=== PATIENT | female | born 1985 | race African-American/Black ===

== ENCOUNTER 2016-05-26 12:40 | Inpatient (IN) | payer OTHER ==
[2016-05-26] MEDS ORDERED: ELECTROLYTE-148 SOLN 1,000 ML IV SCH (13:15)
[2016-05-26 13:59] VITALS: BMI 33.6
[2016-05-26 14:48] LABS: BASOPHIL 0.3 % (0-2.0); MCH 31.4 pg (25.7-33.7); MCHC 33.9 g/dl (32.0-36.0); MEAN CELL VOLUME 92.5 fl (80-96); MEAN PLT VOLUME 8.1 fl (7.5-11.1); NEUTROPHILS 79.1 % (42.8-82.8); PLATELET COUNT 275 K/MM3 (134-434); RDW 14.2 % (11.6-15.6); WHITE BLOOD COUNT 10.1 K/mm3 (4.0-10.0)
[2016-05-26 15:20] LABS: INR 0.95 (0.82-1.09); PROTHROMBIN TIME (PATIENT) 10.4 SEC (9.98-11.88)
[2016-05-26 15:22] LABS: ACTIVATED PTT 28.7 SECONDS (26.9-34.4)
[2016-05-26 15:23] LABS: CALCIUM 9.1 mg/dL (8.5-10.1); CREATININE 0.4 mg/dL (0.55-1.02)
--- NOTE | 2016-05-26 15:25 | PN ---
Progress Note, Labor Vaginal Exam #1 Labor Exam Date: 05/26/16 Labor Exam Time: 15:15 Heart Rate (range): 135's Dilatation: 6cm Effacement (%): 90% Amniotic Membrane Status: Bulging Presentation: Vertex/Position Station: -3 Remarks: 31yo P0 @ 39.1 wks in active labor Category 1 FHR MF status reassuring Pain well controlled cont current management
[2016-05-26] MEDS ORDERED: BUTORPHANOL TARTRATE 1 MG/ML VIAL IVPB ONE (15:26)
[2016-05-26] MEDS ORDERED: PROMETHAZINE HCL 25 MG/1 ML VIAL IVPB ONE (15:28)
[2016-05-26 16:01] LABS: HIV 1 & 2 AB NEGATIVE; HIV 1 AGp24 NEGATIVE
--- NOTE | 2016-05-26 18:26 | PN ---
Progress Note, Labor Vaginal Exam #2 Labor Exam Date: 05/26/16 Labor Exam Time: 18:15 Heart Rate (range): 140's mod varriability, +accels, no decels Dilatation: 8cm Effacement (%): 90% Amniotic Membrane Status: Ruptured (clear fluid) Presentation: Vertex/Position Station: -2 Remarks: 31 yo P0 @ 39.1 wks in active labor Category 1 FHR MF status reassuring AROM for augmentation Pain tolerated well cont following progress of labor
--- NOTE | 2016-05-26 20:41 | PN ---
Delivery - Delivery Type of Anesthesia: Local Episiotomy/Laceration: 2nd degree (Repaired with 2-0 Chromic without dificulty) Delivery, Single - Stages of Labor Date 1st Stage Initiatied: 05/26/16 Time 1st Stage Initiated: 11:30 Date 2nd Stage Initiated: 05/26/16 Time 2nd Stage Initiated: 20:00 Date of Delivery: 05/26/16 Time of Delivery: 20:08 Date Placenta Delivered: 05/26/16 Time Placenta Delivered: 20:11 Placenta: Yes: Spontaneous, Normal Configuration - Condition of Infant Infant Gender: Female Position: Left, OA - 1 Minute Total Score: 9 5 Minutes Total Score: 9 - Feeding Plan Initial Plan: Elected not to breastfeed exclusively throughout hospitalization Benefits of Exclusively reinforced: Yes - Additional Information: Weight [id number] Remarks - Remarks Remarks: Uncomplicated head and shoulder delivery
[2016-05-26] MEDS: IBUPROFEN 600 MG TABLET (FP) PO PRN (21:55)
[2016-05-26] MEDS ORDERED: BENZOCAINE 20% 57 GM BOTTLE TP PRN (22:34)
[2016-05-26] MEDS ORDERED: BENZOCAINE 28 GM HEMORRHOIDAL OINTMENT TP PRN (22:34)
[2016-05-26] MEDS ORDERED: BISACODYL 10 MG SUPP.RECT RC PRN (22:34)
[2016-05-26] MEDS ORDERED: WITCH HAZEL 50% (TUCKS) 40 PAD/JAR PAD TP PRN (22:34)
[2016-05-26] MEDS ORDERED: METHYLERGONOVINE MALEATE 0.2 MG/1 ML AMP IM PRN (22:34)
[2016-05-26] MEDS ORDERED: D5W-LR W/ 20 UNITS OXYTOCIN 1,000 ML IV SCH (22:45)
--- NOTE | 2016-05-26 22:48 | HP ---
Past Medical History - Primary Care Physician PCP:: Rhea Reyes - Admission Chief Complaint: 31yo P0 @ 39.1wks with contructions History Source: Patient Limitations to Obtaining History: No Limitations - Past Medical History ...: 2 ...Para: 0 ...Term: 0 ...: 0 ...Spon : 0 ...Induced : 1 ...Multiple Gestation: 0 ...LMP: 08/28/15 ... Weeks Gestation by Dates: 38.6 ...EDC by Dates: 06/03/16 ...EDC by Sono: 06/01/16 - Past Surgical History Past Surgical History: Yes: None Hx Myomectomy: No Hx Transabdominal Cerclage: No - Smoking History Smoking history: Never smoked Have you smoked in the past 12 months: No - Alcohol/Substance Use Hx Alcohol Use: No History of Substance Use: reports: None - Social History Usual Living Arrangement: Yes: With Parent Home Medications - Allergies Allergies/Adverse Reactions: Allergies Allergy/AdvReac Type Severity Reaction Status Date / Time No Known Allergies Allergy Verified 05/26/16 18:51 - Home Medications Home Medications: Ambulatory Orders Sulfamethoxazole/Trimethoprim [Bactrim Ds -] 1 tab PO BID #14 tablet 10/18/14 Pnv95/Ferrous Fumarate/FA [ Vitamin Tablet] 1 each PO DAILY 05/26/16 Review of Systems - Review of Systems Constitutional: reports: No Symptoms Cardiovascular: reports: No Symptoms Respiratory: reports: No Symptoms Gastrointestinal: reports: No Symptoms Genitourinary: reports: No Symptoms Breasts: reports: No Symptoms Reported Musculoskeletal: reports: No Symptoms Neurological: reports: No Symptoms Pain Intensity: 5 Physical Exam - Maternity Vital Signs: Vital Signs Temperature 98.1 F 05/26/16 20:20 Pulse Rate 82 05/26/16 21:05 Respiratory Rate 18 05/26/16 21:05 Blood Pressure 110/50 05/26/16 21:05 O2 Sat by Pulse Oximetry (%) 100 05/26/16 21:05 Constitutional: Yes: Well Nourished Neck: Yes: WNL Lungs: Clear to auscultation Breast(s): Yes: WNL - Abdominal Exam/OB Fundal Height: 39 Number of Fetuses: Single Presentation: Vertex Contractions: Yes Regularity: Regular (Q5min) Intensity: Mild/Mod Heart Rate (range): 140' Category: I Accelerations: Uniform Decelerations: None - Vaginal Exam/OB Vaginal Bleediing: No Speculum Exam: No Dilatation (cm): cm Effacement (%): 80% Amniotic Membrane Status: Intact (examined after walking at 3pm) Presentation: Vertex/Position Station: -3 - Physical Exam Musculoskeletal: Yes: WNL Extremities: Yes: WNL Integumentary: Yes: WNL ...Motor Strength: WNL Psychiatric: Yes: WNL - Labs Lab Results: CBC, BMP 05/26/16 14:20 05/26/16 14:20 Assessment/Plan 31yo P0 @39wks in active labor admit to L&D, labs, NPO Category 1 FHR Declines pain meds currently
[2016-05-26] MEDS ORDERED: OXYTOCIN 20 UNITS in 0.9% NS 1000 ML INFUS.BAG IV ONE (22:57)
[2016-05-27] MEDS: IBUPROFEN 600 MG TABLET (FP) PO PRN ×2 (01:52→14:40)
[2016-05-27 07:35] LABS: BASOPHIL 0.4 % (0-2.0); EOSINOPHIL 1.3 % (0-4.5); MCH 31.5 pg (25.7-33.7); MCHC 33.5 g/dl (32.0-36.0); MEAN CELL VOLUME 94.2 fl (80-96); MEAN PLT VOLUME 8.6 fl (7.5-11.1); NEUTROPHILS 79.2 % (42.8-82.8); PLATELET COUNT 261 K/MM3 (134-434); RDW 14.1 % (11.6-15.6); WHITE BLOOD COUNT 16.1 K/mm3 (4.0-10.0)
[2016-05-27] MEDS: FERROUS SO4 325 MG TABLET (FP) PO SCH ×2 (08:12→17:24)
[2016-05-27] MEDS: PRENATAL VITAMINS W/ FOLIC ACID TABLET (FP) PO SCH (10:23)
[2016-05-27] MEDS: ACETAMINOPHEN 325 MG TABLET (FP) PO PRN (14:41)
--- NOTE | 2016-05-27 15:30 | PN ---
Post Progress Note - Subjective Subjective: No complaints Post Day: 1 Type of Delivery: Vital Signs: Vital Signs Temperature 98 F 05/27/16 12:40 Pulse Rate 100 H 05/27/16 12:40 Respiratory Rate 20 05/27/16 12:40 Blood Pressure 119/67 05/27/16 12:40 O2 Sat by Pulse Oximetry (%) 100 05/26/16 21:05 Breast Exam: Yes: Soft Uterus: Yes: Fundus @ umbilicus Abdomen/GI: Yes: Abdomen soft, Passing flatus, Tolerating PO Lochia: Yes: Rubra Lochia, amount: Small Extremities: Yes: Calves non-tender, Edema Perineum: Yes: Episiotomy (intact) Activity: Ambulating - Labs Labs: CBC WBC 16.1 K/mm3 (4.0-10.0) H D 05/27/16 06:10 RBC 3.41 M/mm3 (3.60-5.2) L 05/27/16 06:10 Hgb 10.8 GM/dL (10.7-15.3) D 05/27/16 06:10 Hct 32.1 % (32.4-45.2) L 05/27/16 06:10 MCV 94.2 fl (80-96) 05/27/16 06:10 MCHC 33.5 g/dl (32.0-36.0) 05/27/16 06:10 RDW 14.1 % (11.6-15.6) 05/27/16 06:10 Plt Count 261 K/MM3 (134-434) 05/27/16 06:10 MPV 8.6 fl (7.5-11.1) 05/27/16 06:10 Neutrophils % 79.2 % (42.8-82.8) 05/27/16 06:10 Lymphocytes % 14.6 % (8-40) 05/27/16 06:10 Monocytes % 4.5 % (3.8-10.2) 05/27/16 06:10 Eosinophils % 1.3 % (0-4.5) 05/27/16 06:10 Basophils % 0.4 % (0-2.0) 05/27/16 06:10 Assessment/Plan 31yo P1 s/p , doing well stable, afebrile. care instructions reviewed. Continue routine care. Ambulation encouraged Discharge instruction reviewed.
[2016-05-27] MEDS ORDERED: SENNOSIDES/DOCUSATE COMBO (SENNA PLUS) TABLET (UD) PO PRN (22:00)
[2016-05-28] MEDS: ACETAMINOPHEN 325 MG TABLET (FP) PO PRN (05:17)
[2016-05-28] MEDS: IBUPROFEN 600 MG TABLET (FP) PO PRN (05:18)
[2016-05-28] MEDS: FERROUS SO4 325 MG TABLET (FP) PO SCH (08:30)
--- NOTE | 2016-05-28 08:33 | PN ---
Post Progress Note - Subjective Subjective: No complaints Post Day: 2 Type of Delivery: Vital Signs: Vital Signs Temperature 97.7 F 05/27/16 21:22 Pulse Rate 87 05/27/16 21:22 Respiratory Rate 17 05/27/16 21:22 Blood Pressure 108/58 05/27/16 21:22 O2 Sat by Pulse Oximetry (%) 99 05/27/16 21:22 Breast Exam: Yes: Soft Uterus: Yes: Fundus below umbilicus, Non-tender Abdomen/GI: Yes: Abdomen soft Lochia: Yes: Rubra Lochia, amount: Small Extremities: Yes: Calves non-tender, Edema Perineum: Yes: Episiotomy (repair intact) Activity: Ambulating - Labs Labs: CBC WBC 16.1 K/mm3 (4.0-10.0) H D 05/27/16 06:10 RBC 3.41 M/mm3 (3.60-5.2) L 05/27/16 06:10 Hgb 10.8 GM/dL (10.7-15.3) D 05/27/16 06:10 Hct 32.1 % (32.4-45.2) L 05/27/16 06:10 MCV 94.2 fl (80-96) 05/27/16 06:10 MCHC 33.5 g/dl (32.0-36.0) 05/27/16 06:10 RDW 14.1 % (11.6-15.6) 05/27/16 06:10 Plt Count 261 K/MM3 (134-434) 05/27/16 06:10 MPV 8.6 fl (7.5-11.1) 05/27/16 06:10 Neutrophils % 79.2 % (42.8-82.8) 05/27/16 06:10 Lymphocytes % 14.6 % (8-40) 05/27/16 06:10 Monocytes % 4.5 % (3.8-10.2) 05/27/16 06:10 Eosinophils % 1.3 % (0-4.5) 05/27/16 06:10 Basophils % 0.4 % (0-2.0) 05/27/16 06:10 Assessment/Plan 31yo P1 s/p , doing well stable, afebrile. care instructions reviewed. Continue routine care. Ambulation encouraged Discharge instruction reviewed.
[2016-05-28 09:44] VITALS: BP 107/53; PULSE 75; TEMP 98.4
[2016-05-28] MEDS: PRENATAL VITAMINS W/ FOLIC ACID TABLET (FP) PO SCH (10:06)
--- NOTE | 2016-06-30 15:51 | DS ---
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: Vital Signs Temperature 98.4 F 05/28/16 09:43 Pulse Rate 75 05/28/16 09:43 Respiratory Rate 20 05/28/16 09:43 Blood Pressure 107/53 05/28/16 09:43 O2 Sat by Pulse Oximetry (%) 99 05/27/16 21:22 Constitutional: Yes: Well Nourished HENT: Yes: WNL Neck: Yes: WNL Cardiovascular: Yes: WNL Respiratory: Yes: WNL, CTA Bilaterally Gastrointestinal: Yes: WNL, Normal Bowel Sounds, Soft Renal/: Yes: WNL Pelvis: Yes: WNL Cervix: Yes: Normal Uterus: Yes: Firm ....Post : Yes: Slight lochia rubra Musculoskeletal: Yes: WNL Extremities: Yes: WNL Labs: CBC, BMP 05/27/16 06:10 05/26/16 14:20 Delivery - Delivery Vaginal Delivery: No Problems Type of Anesthesia: Local Episiotomy/Laceration: 2nd degree (Repaired with 2-0 Chromic without dificulty) EBL (cc): 300 Delivery, Single - Stages of Labor Date 1st Stage Initiatied: 05/26/16 Time 1st Stage Initiated: 11:30 Date 2nd Stage Initiated: 05/26/16 Time 2nd Stage Initiated: 20:00 Date of Delivery: 05/26/16 Time of Delivery: 20:08 Time Placenta Delivered: 20:11 Placenta: Yes: Spontaneous, Normal Configuration - 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 You may walk unlimited noah of and climb stairs. You may resume driving the car when you feel safe and comfortable behind the wheel. No sexual activity as instructed. Wound care If you have a bandage, leave it on, and keep dry for 48-72 hours. After that time discard the outer bandage. If they are tapes on the skin under the out of bandage leave them in place. They will peel off in the next 7 to 10 days. Do Not Peel them off. You may shower the day after surgery. If there are tapes present on the skin, you may shower over them. Diet There are no dietary restrictions. Eat healthy, high-fiber foods. Drink 6 to 8 glasses of liquid each day. This will assist in keeping your bowels are regular. Pain management You may take Tylenol or acetaminophen or Ibuprofen (for example, Motrin, Advil etc.) from my pain prescription medication is ordered should be taken as prescribed for moderate to severe pain. Call MD for any of the following: Severe pain not relieved by medication Fever of 101 or higher Excessive bleeding or drainage on dressing Inability to urinate Referrals: Rhea Reyes MD [Staff Physician] - Disposition: HOME - Home Medications Comprehensive Discharge Medication List: Ambulatory Orders Sulfamethoxazole/Trimethoprim [Bactrim Ds -] 1 tab PO BID #14 tablet 10/18/14 Pnv95/Ferrous Fumarate/FA [ Vitamin Tablet] 1 each PO DAILY 05/26/16
== END 2016-05-28 13:45 | disposition home or self-care (01) | DRG 775 ==
LOC: JDEL 12:40 → JLDR 13:15 → J3W 22:14
PROVIDERS: ADMIT Obstetrics & Gynecology; ATTEND Obstetrics & Gynecology
PROC: 10E0XZZ Delivery of Products of Conception, External Approach (ICD-10-PCS; principal; 2016-05-26)
PROC: 0KQM0ZZ Repair Perineum Muscle, Open Approach (ICD-10-PCS; 2016-05-26)
DX: O70.1 Second degree perineal laceration during delivery (principal); Z37.0 Single live birth; Z3A.39 39 weeks gestation of pregnancy
CPT/HCPCS: 36415; 59025; 59409; 80048; 85025; 85610; 85730; 86593; 86850; 86900; 86901; 87389

== ENCOUNTER 2017-06-02 05:10 | Inpatient (IN) | payer OTHER ==
[~2017-06-02 05:10] MED LIST: DEXTROSE 5%-LACTATED RINGERS 1,000 ML IV SCH
[2017-06-02] MEDS ORDERED: OXYTOCIN 20 UNITS in 0.9% NS 20 UNIT/1,000 ML INFUS.BAG IV ONE ×2 (06:05→08:18)
[2017-06-02 06:37] LABS: BASO % 0.4 % (0-2.0); EOS % 1.2 % (0-4.5); HEMATOCRIT 36.5 % (32.4-45.2); HEMOGLOBIN 12.3 GM/dL (10.7-15.3); LYMPH % 19.4 % (8-40); MCH 32.1 pg (25.7-33.7); MCHC 33.7 g/dl (32.0-36.0); MEAN CELL VOLUME 95.2 fl (80-96); MEAN PLT VOLUME 8.7 fl (7.5-11.1); MONO % 6.6 % (3.8-10.2); NEUT % 72.4 % (42.8-82.8); PLATELET COUNT 280 K/MM3 (134-434); RBC 3.84 M/mm3 (3.60-5.2); RDW 14.8 % (11.6-15.6); WHITE BLOOD COUNT 11.7 K/mm3 (4.0-10.0)
[2017-06-02 06:56] VITALS: BMI 31.6
[2017-06-02 07:25] LABS: INR 0.92 (0.82-1.09); PROTHROMBIN TIME (PATIENT) 10.4 SEC (9.98-11.88)
[2017-06-02 07:28] LABS: ACTIVATED PTT 27.5 SECONDS (26.9-34.4)
[2017-06-02] MEDS ORDERED: ACETAMINOPHEN 325 MG TABLET (FP) ONE (07:42)
[2017-06-02] MEDS ORDERED: IBUPROFEN 600 MG TABLET (FP) PO ONE (07:42)
[2017-06-02] MEDS: ACETAMINOPHEN 325 MG TABLET (FP) PO PRN ×2 (08:05→19:53)
[2017-06-02] MEDS: IBUPROFEN 600 MG TABLET (FP) PO PRN ×2 (08:05→19:52)
[2017-06-02] MEDS ORDERED: WITCH HAZEL 50% (TUCKS) 40 PAD/JAR PAD TP PRN (08:48)
[2017-06-02] MEDS ORDERED: BENZOCAINE 20% 57 GM BOTTLE TP PRN (08:48)
[2017-06-02] MEDS ORDERED: BENZOCAINE 28 GM HEMORRHOIDAL OINTMENT TP PRN (08:48)
[2017-06-02] MEDS ORDERED: BISACODYL 10 MG SUPP.RECT RC PRN (08:48)
[2017-06-02] MEDS ORDERED: METHYLERGONOVINE MALEATE 0.2 MG/1 ML AMP IM PRN (08:48)
[2017-06-02 08:53] LABS: ALBUMIN 2.6 g/dl (3.4-5.0); ANION GAP 12 (8-16); BILIRUBIN,TOTAL 0.3 mg/dL (0.2-1.0); BLOOD UREA NITROGEN 7 mg/dL (7-18); CALCIUM 8.3 mg/dL (8.5-10.1); CHLORIDE 108 mmol/L (98-107); CO2 19 mmol/L (21-32); CREATININE 0.4 mg/dL (0.55-1.02); GLUCOSE,RANDOM 109 mg/dL (74-106); POTASSIUM 3.9 mmol/L (3.5-5.1); SGOT/AST 13 U/L (15-37); SGPT/ALT 9 U/L (12-78); SODIUM 139 mmol/L (136-145); TOT PROT 5.9 g/dl (6.4-8.2)
[2017-06-02 08:54] LABS: ALK PHOS 190 U/L (45-117)
--- NOTE | 2017-06-02 08:56 | HP ---
Past Medical History - Primary Care Physician PCP:: Mick Vora - Admission Chief Complaint: 32yo P1 with at EGA 39w 2d admitted with spontaneous labor. History of Present Illness: Pt with painful regular contractions. She was found to be 6-7cm dilated on admission and progressed to 2nd and 3rd stage quickly. 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: Alzheimer's, CVA, Dementia, Migraine, Multiple Sclerosis, Peripheral Neuropathy, Parkinson's, Seizure, Syncope, TIA, Vertigo, Other Cardiovascular: No: AFIB, Aneurysm, Aortic Insufficiency, Aortic Stenosis, CAD, CHF, Deep Vein Thrombosis, HTN, Hyperlipdemia, CT, Mitral Insufficiency, Mitral Stenosis, Murmur, Pulmonary Hypertension, Other Pulmonary: No: Asthma, Bronchitis, Cancer, COPD, O2 Dependent, Pneumonia, Previously Intubated, Pulmonary Embolus, Pulmonary Fibrosis, Sleep Apnea, Other Gastrointestinal: No: Ascites, Cancer, Constipation, Crohn's Disease, Diverticulitis, Diverticulosis, Esophageal Varices, Gastritis, GERD, GI Bleed, Hemorrhoids, Hiatal Hernia, Inflamatory Bowel Disease, Irritable Bowel Disease, Pancreatitis, Peptic Ulcer Disease, Ulcerative Colitis, Other Hepatobiliary: No: Cirrhosis, Cholelithiasis, Cholecystitis, Choledocholithiasis , Hepatitis A, Hepatitis B, Hepatitis C, Other Renal/: No: Renal Failure, Renal Inusuff, BPH, Cancer, Hematuria, Hemodialysis , Neurogenic Bladder, Renal Calculi, UTI, Other Reproductive: No: Ectopic , Endometriosis, Fibroids, PID, Polycystic Ovary Syndrome, Postmenopausal, Other ...: 3 ...Para: 1 ...Term: 1 ...Induced : 1 ...LMP: 08/20/16 ... Weeks Gestation by Dates: 39.2 ...EDC by Sono: 06/07/17 Heme/Onc: No: Anemia, B12 Deficiency, Bleeding Disorder, Cancer, Current Chemotherapy, Current Radiation Therapy, Hemochromatosis, Hypercoaguable State, Myeloproliferative Synd, Sickle Cell Disease, Sickle Cell Trait, Thrombocytopenia, Other Infectious Disease: No: AIDS, C-Diff, Herpes Zoster, HIV, MRSA, STD's, Tuberculosis, VREF, Other Psych: No: Addictions, Anxiety, Bipolar, Depression, Panic, Psychosis, Schizophrenia, Other Musculoskeletal: No: Bursitis, Chronic low back pain, Hemiparesis, Hemiplegia, Osteoarthritis, Paraplegia, Other Rheumatology: No: Fibromyalgia, Gout, Lupus, Rheumatoid Arthritis, Sarcoidosis, Vasculitis, Other ENT: No: Allergic Rhinitis, Sinusitis, Other Endocrine: No: Concho's Disease, Iraida's Disease, Diabetes Insipidus, Diabetes Mellitus, Hyperparathyroidism, Hyperthyroidism, Hypothyroidism, Osteopenia, SIADH, Other Dermatology: No: Basal Cell, Cellulitis, Eczema, Melanoma, Psoriasis, Squamous Cell, Other - Past Surgical History Past Surgical History: Yes: None Hx Myomectomy: No Hx Transabdominal Cerclage: No - Smoking History Smoking history: Never smoked Have you smoked in the past 12 months: No - Alcohol/Substance Use Hx Alcohol Use: No History of Substance Use: reports: None - Social History Usual Living Arrangement: Yes: With Spouse, With Child ADL: Independent History of Recent Travel: No Home Medications - Allergies Allergies/Adverse Reactions: Allergies Allergy/AdvReac Type Severity Reaction Status Date / Time No Known Allergies Allergy Verified 05/26/16 18:51 - Home Medications Home Medications: Ambulatory Orders Pnv No.95/Ferrous Fum/Folic AC [ Vitamin Tablet] 1 each PO DAILY Family Disease History - Family Disease History Family History: Unremarkable Review of Systems - Review of Systems Constitutional: reports: Other (labor) Eyes: reports: No Symptoms HENT: reports: No Symptoms Neck: reports: No Symptoms Cardiovascular: reports: No Symptoms Respiratory: reports: No Symptoms Gastrointestinal: reports: No Symptoms Genitourinary: reports: No Symptoms Breasts: reports: No Symptoms Reported Musculoskeletal: reports: No Symptoms Integumentary: reports: No Symptoms Neurological: reports: No Symptoms Endocrine: reports: No Symptoms Hematology/Lymphatic: reports: No Symptoms Psychiatric: reports: No Symptoms Pain Intensity: 9 Physical Exam - Maternity Vital Signs: Vital Signs Temperature 98.4 F 06/02/17 07:45 Pulse Rate 89 06/02/17 07:45 Respiratory Rate 17 06/02/17 07:45 Blood Pressure 123/75 06/02/17 07:45 O2 Sat by Pulse Oximetry (%) 100 06/02/17 07:45 Constitutional: Yes: Well Nourished, Other (labor) Eyes: Yes: WNL, Conjunctiva Clear HENT: Yes: WNL, Atraumatic, Normocephalic Neck: Yes: WNL, Supple Cardiovascular: Yes: WNL, Regular Rate and Rhythm Lungs: Clear to auscultation, Normal air movement - Abdominal Exam/OB Fundal Height: 39 Number of Fetuses: Single Presentation: Vertex Contractions: Yes Regularity: Regular Intensity: Mod/Strong Monitor Mode: External Heart Rate (range): 120 Heart Rate Location: Midline Category: I Accelerations: Non-Uniform Decelerations: None - Vaginal Exam/OB Vaginal Bleediing: No Speculum Exam: No - Physical Exam Musculoskeletal: Yes: WNL Extremities: Yes: WNL Edema: Yes Edema: LLE: Trace, RLE: Trace Integumentary: Yes: WNL ...Motor Strength: WNL Psychiatric: Yes: WNL, Alert, Oriented - Labs Lab Results: CBC, BMP 06/02/17 05:30 Hemorrhage Risk Assessment - Risk Factors Medium Risk Factors: Yes: None High Risk Factors: Yes: None Risk Score: 1 Risk Level: Medium Risk Assessment/Plan 32yo P1 with at EGA 39w 2d admitted with spontaneous labor. Pt progressed quickly to 2nd stage and delivered a live baby boy w/o complications. Pt and baby are well.
--- NOTE | 2017-06-02 08:57 | PN ---
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 - 1 Minute Total Score: 9 5 Minutes Total Score: 9 - Feeding Plan Initial Plan: Elected not to breastfeed exclusively throughout hospitalization Benefits of Exclusively reinforced: Yes Remarks - Remarks Remarks: w/o problems
[2017-06-02] MEDS ORDERED: D5W-LR W/ 20 UNITS OXYTOCIN 20 UNIT/1,000 ML INFUS.BAG IV SCH (09:00)
[2017-06-02] MEDS ORDERED: TUBERCULIN PPD 5 TU/0.1ML SYRINGE (IN PATIENT USE ONLY) ID ONE (09:00)
[2017-06-02] MEDS ORDERED: oxyCODONE HCL 5 MG TABLET ONE (10:01)
[2017-06-02] MEDS ORDERED: oxyCODONE HCL 5 MG TABLET PO PRN (10:08)
[2017-06-02] MEDS: PRENATAL VITAMINS W/ FOLIC ACID TABLET (FP) PO SCH (11:18)
--- NOTE | 2017-06-03 07:06 | PN ---
Post Progress Note - Subjective Subjective: Patient without acute complaints. Reports tolerating oral intake without nausea or vomiting. Ambulating without dizziness. Denies fevers or chills. Pain well controlled with oral pain medication. without difficulty. Passing flatus. Post Day: 1 Type of Delivery: Vital Signs: Vital Signs Temperature 98.5 F 06/03/17 06:00 Pulse Rate 87 06/03/17 06:00 Respiratory Rate 18 06/03/17 06:00 Blood Pressure 121/70 06/03/17 06:00 O2 Sat by Pulse Oximetry (%) 100 06/02/17 07:45 Breast Exam: Yes: Engorged Uterus: Yes: Fundus Firm, Fundus below umbilicus Abdomen/GI: Yes: Abdomen soft, Passing flatus, Tolerating PO. No: Abdominal Distention, Tender Lochia: Yes: Serosa Lochia, amount: Small Extremities: Yes: Calves non-tender. No: Edema Activity: Ambulating - Labs Labs: CBC WBC 11.7 K/mm3 (4.0-10.0) H 06/02/17 05:30 RBC 3.84 M/mm3 (3.60-5.2) 06/02/17 05:30 Hgb 12.3 GM/dL (10.7-15.3) D 06/02/17 05:30 Hct 36.5 % (32.4-45.2) 06/02/17 05:30 MCV 95.2 fl (80-96) 06/02/17 05:30 MCH 32.1 pg (25.7-33.7) 06/02/17 05:30 MCHC 33.7 g/dl (32.0-36.0) 06/02/17 05:30 RDW 14.8 % (11.6-15.6) 06/02/17 05:30 Plt Count 280 K/MM3 (134-434) 06/02/17 05:30 MPV 8.7 fl (7.5-11.1) 06/02/17 05:30 Neutrophils % 72.4 % (42.8-82.8) 06/02/17 05:30 Lymphocytes % 19.4 % (8-40) D 06/02/17 05:30 Monocytes % 6.6 % (3.8-10.2) 06/02/17 05:30 Eosinophils % 1.2 % (0-4.5) 06/02/17 05:30 Basophils % 0.4 % (0-2.0) 06/02/17 05:30 Assessment/Plan 32 yo PPD # 1 s/p , afebrile, vital signs stable, doing well 1. Continue routine care. 2. Follow up AM CBC 3. Rh positive status, no rhogam indicated. 4. Encourage ambulation 5. Continue oral pain medication 6. Anticipate discharge home day #2
[2017-06-03 08:21] LABS: BASO % 0.5 % (0-2.0); EOS % 1.9 % (0-4.5); HEMATOCRIT 30.6 % (32.4-45.2); HEMOGLOBIN 10.5 GM/dL (10.7-15.3); LYMPH % 23.7 % (8-40); MCH 32.5 pg (25.7-33.7); MCHC 34.1 g/dl (32.0-36.0); MEAN CELL VOLUME 95.4 fl (80-96); MEAN PLT VOLUME 8.3 fl (7.5-11.1); MONO % 5.1 % (3.8-10.2); NEUT % 68.8 % (42.8-82.8); PLATELET COUNT 262 K/MM3 (134-434); RBC 3.21 M/mm3 (3.60-5.2); RDW 15.2 % (11.6-15.6); WHITE BLOOD COUNT 13.8 K/mm3 (4.0-10.0)
[2017-06-03] MEDS: PRENATAL VITAMINS W/ FOLIC ACID TABLET (FP) PO SCH (10:33)
[2017-06-03] MEDS: IBUPROFEN 600 MG TABLET (FP) PO PRN (13:06)
[2017-06-03] MEDS: ACETAMINOPHEN 325 MG TABLET (FP) PO PRN (13:07)
[2017-06-03] MEDS ORDERED: DIPHTH,PERTUSS(ACELL),TET 0.5 ML DISP.SYRIN IM ONE (14:00)
[2017-06-03] MEDS ORDERED: SENNOSIDES/DOCUSATE COMBO (SENNA PLUS) TABLET (UD) PO PRN (22:00)
[2017-06-04] MEDS: ACETAMINOPHEN 325 MG TABLET (FP) PO PRN ×2 (02:10→18:17)
[2017-06-04] MEDS: IBUPROFEN 600 MG TABLET (FP) PO PRN ×2 (02:10→18:16)
--- NOTE | 2017-06-04 08:17 | DS ---
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: Vital Signs Temperature 98.4 F 06/03/17 22:00 Pulse Rate 101 H 06/03/17 22:00 Respiratory Rate 18 06/03/17 22:00 Blood Pressure 117/81 06/03/17 22:00 O2 Sat by Pulse Oximetry (%) 100 06/02/17 07:45 Constitutional: Yes: Well Nourished, No Distress, Calm Eyes: Yes: WNL, Conjunctiva Clear, EOM Intact HENT: Yes: WNL, Atraumatic, Normocephalic Neck: Yes: WNL, Supple, Trachea Midline Cardiovascular: Yes: WNL, Regular Rate and Rhythm Respiratory: Yes: WNL, Regular, CTA Bilaterally Gastrointestinal: Yes: WNL ...Rectal Exam: Yes: WNL Renal/: Yes: WNL ....Post : Yes: Uterus firm, Uterus non-tender, Slight lochia rubra Breast(s): Yes: WNL Musculoskeletal: Yes: WNL Extremities: Yes: WNL Edema: No Integumentary: Yes: WNL Neurological: Yes: WNL, Alert, Oriented ...Motor Strength: WNL Psychiatric: Yes: WNL, Alert, Oriented Labs: CBC, BMP 06/03/17 07:45 06/02/17 07:20 Delivery - Delivery Vaginal Delivery: No Problems, Spontaneous Type of Anesthesia: None Episiotomy/Laceration: None EBL (cc): 300 Delivery, Single - Stages of Labor Date 1st Stage Initiatied: 06/01/17 Time 1st Stage Initiated: 22:00 Date 2nd Stage Initiated: 06/02/17 Time 2nd Stage Initiated: 06:02 Date of Delivery: 06/02/17 Time of Delivery: 06:12 Time Placenta Delivered: 06:15 Placenta: Yes: Spontaneous, Normal Configuration - 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 - 1 Minute Total Score: 9 5 Minutes Total Score: 9 - [place] Feeding Plan Initial Plan: Elected not to breastfeed exclusively throughout hospitalization Benefits of Exclusively reinforced: Yes Discharge Summary Reason For Visit: LABOR Procedures: Principal: Condition: Good - Instructions Diet, Activity, Other Instructions: regular diet, follow up office 4 to 6 weeks, no intercourse Referrals: Mick Vroa MD [Staff Physician] - Disposition: HOME - Home Medications Comprehensive Discharge Medication List: Ambulatory Orders Pnv No.95/Ferrous Fum/Folic AC [ Vitamin Tablet] 1 each PO DAILY Ibuprofen [Motrin -] 600 mg PO TID #21 tablet 06/03/17
[2017-06-04] MEDS: PRENATAL VITAMINS W/ FOLIC ACID TABLET (FP) PO SCH (10:04)
[2017-06-04 11:46] VITALS: BP 109/69; PULSE 86; TEMP 98.1
== END 2017-06-04 21:10 | disposition home or self-care (01) | DRG 775 ==
LOC: JLDR 05:10 → J3W 10:30
PROVIDERS: ADMIT Obstetrics & Gynecology; ATTEND Obstetrics & Gynecology
PROC: 10E0XZZ Delivery of Products of Conception, External Approach (ICD-10-PCS; principal; 2017-06-02)
DX: O62.3 Precipitate labor (principal); O36.0930 Maternal care for other rhesus isoimmunization, third trimester, not applicable or unspecified; Z3A.39 39 weeks gestation of pregnancy; Z37.0 Single live birth
CPT/HCPCS: 36415; 59409; 80053; 85025; 85610; 85730; 86593; 86850; 86900; 86901; 90715